=== PATIENT | male | born 2005 | race Caucasian/White ===

== ENCOUNTER 2024-03-28 11:44 | Emergency (ER) | payer BC ==
[~2024-03-28] VITALS: Ht 177.8 cm; Wt 81.6 kg
[2024-03-28 11:45] VITALS: BP_SYST 119; PULSE 66; RESP 19; TEMP 98; O2SAT 99
[2024-03-28] MEDS ORDERED: DIPH-179 PO (12:18)
[2024-03-28] MEDS ORDERED: DICY-14 PO (12:18)
[2024-03-28] MEDS ORDERED: ONDA-8 TL (12:19)
[2024-03-28] MEDS ORDERED: BISM-69 PO (12:19)
[2024-03-28 12:27] VITALS: BP_SYST 121; PULSE 72; RESP 19; TEMP 98; O2SAT 99
== END 2024-03-28 12:26 | disposition home or self-care (01) ==
LOC: SED 11:44
DX: K52.9 Noninfective gastroenteritis and colitis, unspecified (principal); R11.2 Nausea with vomiting, unspecified; R10.9 Unspecified abdominal pain; Z79.899 Other long term (current) drug therapy
CPT/HCPCS: 99283